=== PATIENT | female | born 1940 ===

== ENCOUNTER 2017-01-16 01:54 | Observation (INO) | payer MEDICARE ==
[2017-01-16] MEDS ORDERED: Lidocaine/Epi 1% 1:100000 20 ML IJ ONE (03:00)
[2017-01-16] MEDS ORDERED: Albuterol 0.083% Inhal Sol (2.5 mg/3 mL) UD INH ONE ×2 (03:01→05:10)
[2017-01-16] MEDS ORDERED: Lidocaine 2% w Epi 1:100,000 Inj IJ ONE ×2 (03:02→09:06)
[2017-01-16] MEDS ORDERED: Albuterol 0.083% Inhal Sol (2.5 mg/3 mL) UD ONE ×2 (03:04→05:27)
[2017-01-16] MEDS ORDERED: TDAP Vaccine 0.5 mL Syr IM ONE (03:14)
[2017-01-16 03:23] LABS: BASO % 0.4 % (0.0-2.0); EOS # 0.5 K/uL (0.0-0.7); EOS % 7.2 % (0.0-4.0); LYMPH % 26.1 % (20.0-40.0); MEAN CELL VOLUME 90.7 fl (81.0-99.0); MEAN CORPUSCULAR HEMOGLOBIN 29.5 pg (27.0-31.0); MEAN CORPUSCULAR HGB CONC 32.5 g/dL (33.0-37.0); MEAN PLATELET VOLUME 7.3 fl (7.2-11.7); MONO # 0.7 K/uL (0.0-0.8); MONO % 8.7 % (0.0-10.0); NEUT # 4.4 K/uL (1.8-7.0); NEUT % 57.6 % (50.0-75.0); NRBC % 0.1 % (0.0-0.0); RBC 4.39 Mil/uL (3.80-5.20); RED CELL DISTRIBUTION WIDTH 16.3 % (11.5-14.5); WHITE BLOOD COUNT 7.6 K/uL (4.8-10.8)
[2017-01-16 03:33] LABS: BLOOD UREA NITROGEN 11 mg/dl (7-17); GFR AFRICAN-AMERICAN > 60; GFR NON-AFRICAN AMERICAN > 60
[2017-01-16 03:34] LABS: ALBUMIN 3.6 g/dL (3.5-5.0); CALCIUM 9.2 mg/dL (8.4-10.2)
[2017-01-16 03:35] LABS: ALB/GLOB RATIO 1.4 (1.0-2.1); ALT/SGPT 24 U/L (9-52); AST/SGOT 23 U/L (14-36)
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
[2017-01-16 03:52] LABS: INR 0.9 (0.9-1.2); PARTIAL THROMBOPLASTIN TIME 27.8 Seconds (25.6-37.1); PROTHROMBIN TIME 10.3 Seconds (9.8-13.1)
[2017-01-16] MEDS ORDERED: ceFAZolin 1 GM in Sodium Chloride 0.9% 100 ML IV STA (04:29)
[2017-01-16] MEDS ORDERED: Lidocaine 1% Inj (20ml) IJ ONE (05:57)
[2017-01-16] MEDS ORDERED: Povidone Iodine Topical 10% Sol ONE (05:58)
--- NOTE | 2017-01-16 06:36 | ED PDOC ---
- Laboratory Results Result Diagrams: 01/16/17 03:20 01/16/17 03:20 Medical Decision Making Medical Decision Makin Patient signed over to me from [facility] pending podiatry consult. Patient is in ED OBS. Further documentation will take place in that section of the note. Scribe Attestation: Documented by Anat Thomas acting as a scribe for Rodrigue Estrella MD. MD Scribe Attestation: All medical record entries made by the Scribe were at my direction and personally dictated by me. I have reviewed the chart and agree that the record accurately reflects my personal performance of the history, physical exam, medical decision making, and the department course for this patient. I have also personally directed, reviewed, and agree with the discharge instructions and disposition. Disposition - Clinical Impression Clinical Impression: Laceration of right lower leg, Dyspnea - POA Present On Arrival: None - Disposition Disposition: Transfer of Care Disposition Time: 04:30 Condition: STABLE Patient Signed Over To: Jesus Rodas III (at 0700) Handoff Comments: Pending podiatry consult ED OBSERVATION Date of observation admission: 01/16/17 Time of observation admission: 04:30 - Observation admission statement Patient is being placed in observation because:: Pending podiatry consult - Goals of Observation Goals of observation are:: Final disposition - Progress Note Progress Note: 01/16/17 07:00 Patient will be signed out to Dr. Rodsa pending podiatry consult.
--- NOTE | 2017-01-16 07:15 | ED PDOC ---
- Laboratory Results Result Diagrams: 01/16/17 03:20 01/16/17 03:20 Medical Decision Making Medical Decision Making: Time: 7:00 Patient was signed out to me by Dr. Rodrigue Estrella pending wound repair by podiatry, reevaluation and final disposition. Podiatry team repaired wound and pt seen by Dr Fontanez per podiatry team. Will see wound care [place] morning. Rx antibiotics. Also given additional duoneb for asthma (takes at home) and she requested her dose of prednisone 1mg (on current taper). ~ Scribe Attestation: Documented byJagdish Ni, acting as a scribe for Jesus Rodas DO. Provider Scribe Attestation: All medical record entries made by the Scribe were at my direction and personally dictated by me. I have reviewed the chart and agree that the record accurately reflects my personal performance of the history, physical exam, medical decision making, and the department course for this patient. I have also personally directed, reviewed, and agree with the discharge instructions and disposition. Disposition - Clinical Impression Clinical Impression: Laceration of right lower leg, Dyspnea - POA Present On Arrival: None - Disposition Disposition: Routine/Home Disposition Time: 09:00 Condition: STABLE
[2017-01-16] MEDS ORDERED: Albuterol-Ipratrop 3 mg / 0.5 (3 ml) UD INH STA (10:09)
[2017-01-16] MEDS ORDERED: Albuterol-Ipratrop 3 mg / 0.5 (3 ml) UD ONE (10:14)
[2017-01-16] MEDS ORDERED: predniSONE 5 mg/5 mL Oral Soln UD PO ONE (10:45)
[2017-01-16 11:27] VITALS: BP 130/69; PULSE 76; RESP 18; TEMP 98.1; O2SAT 96
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
--- NOTE | 2017-01-16 14:15 | RAD ---
PROCEDURE: Radiographs of the right tibia and fibula. HISTORY: laceration medial distal aspect COMPARISON: None available. TECHNIQUE: Frontal and lateral views obtained. FINDINGS: BONES: No fracture or destructive lesion. JOINT SPACES: Unremarkable. OTHER FINDINGS: Deep soft tissue injury adjacent to the distal right tibia. No osseous involvement. No visulaized radiopaque/visualized foreign body. IMPRESSION: Soft tissue swelling without acute articular or osseous abnormality.
== END 2017-01-16 10:11 | disposition home or self-care (01) ==
LOC: H.ER 01:54 → H.EROBSV 04:30
PROVIDERS: ADMIT Emergency Medicine; ATTEND Emergency Medicine
DX: S91.011A Laceration without foreign body, right ankle, initial encounter (principal); X58.XXXA Exposure to other specified factors, initial encounter; Y92.9 Unspecified place or not applicable; Z88.2 Allergy status to sulfonamides; Z23 Encounter for immunization; F41.9 Anxiety disorder, unspecified; I25.10 Atherosclerotic heart disease of native coronary artery without angina pectoris; J44.9 Chronic obstructive pulmonary disease, unspecified; I10 Essential (primary) hypertension; E78.00 Pure hypercholesterolemia, unspecified; Z95.5 Presence of coronary angioplasty implant and graft; Z87.891 Personal history of nicotine dependence
CPT/HCPCS: 12004; 73590; 80053; 85025; 85610; 85730; 90471; 90715; 94640; 96374; 99282; G0378; J0690

== ENCOUNTER 2017-01-19 13:48 | Emergency (ER) | payer MEDICARE ==
[2017-01-19 14:01] VITALS: TEMP 98.7
--- NOTE | 2017-01-19 14:23 | ED PDOC ---
HPI: SOB/CHF/COPD Time Seen by Provider: 01/19/17 14:01 Chief Complaint (Nursing): Shortness Of Breath Chief Complaint (Provider): Dizziness History Per: Patient, Family History/Exam Limitations: no limitations Onset/Duration Of Symptoms: Days (Today Morning) Current Symptoms Are (Timing): Still Present Additional Complaint(s): Pt. has dizziness today after waking up. Like she is going to pass out. Also with palpitations, nausea. No chest pain. Has chronic dyspnea, but worse today. No numbness, tingles, headaches, chest pain, abd pain. Usually oxygen level is 93-96 and uses oxygen at home at night. No fever. Cough present with no phlegm. On her to wound care today, but came to the ED instead with the symptoms. Has a laceration repair recently and wound care appt for check up. Has mild pain to wound. Occasional bleeding from there. Past Medical History Reviewed: Nursing Documentation, Vital Signs Vital Signs: Last Vital Signs Temp 98.7 F 01/19/17 13:59 Pulse 82 01/19/17 13:59 Resp 20 01/19/17 13:59 BP 129/69 01/19/17 13:59 Pulse Ox 93 L 01/19/17 17:26 - Medical History PMH: Anxiety, CAD, COPD, Fractures (ribs), Gall Bladder Disease, HTN, Hypercholesterolemia Denies: HIV, Chronic Kidney Disease - Surgical History Surgical History: Cholecystectomy, Coronary Stent (x1), Tonsillectomy - Family History Family History: States: Unknown Family Hx - Living Arrangements Living Arrangements: With Family - Social History Current smoker - smoking cessation education provided: No Alcohol: None Drugs: Denies - Home Medications Home Medications: Ambulatory Orders Medication Instructions Recorded Furosemide 20 mg PO DAILY 06/16/14 Dexlansoprazole [Dexilant] 60 mg PO DAILY 07/15/14 [id number]-6-[id number] Ethyl Esters 1 GM 2 gm PO BID 07/15/14 [Lovaza] Albuterol 0.083% [Albuterol 0.083% 3 ml IH Q4H PRN 06/29/16 Inhal Yareli (2.5 mg/3 ml) UD] predniSONE [predniSONE Tab] 1 mg PO DAILY 06/29/16 Aspirin [Aspirin Chewable] 81 mg PO DAILY 01/16/17 Cephalexin [Keflex] 500 mg PO Q6 #27 capsule 01/16/17 traMADol [Ultram] 50 mg PO TID PRN #12 tab 01/16/17 Albuterol Sulfate [Proair Hfa] 0.09 mg IH Q6H PRN #2 inh 01/19/17 Clindamycin [Cleocin] 300 mg PO QID 7 Days 01/19/17 predniSONE [predniSONE Tab] 20 mg PO BID 5 Days 01/19/17 - Allergies Allergies/Adverse Reactions: Allergies Allergy/AdvReac Type Severity Reaction Status Date / Time Sulfa (Sulfonamide Allergy SWELLING Verified 01/19/17 13:58 Antibiotics) Review of Systems ROS Statement: Except As Marked, All Systems Reviewed And Found Negative Constitutional: Positive for: Weakness Cardiovascular: Positive for: Palpitations, Light Headedness Respiratory: Positive for: Cough, Shortness of Breath, Wheezing Gastrointestinal: Positive for: Nausea Musculoskeletal: Positive for: Leg Pain Neurological: Positive for: Weakness, Dizziness Physical Exam - Reviewed Nursing Documentation Reviewed: Yes Vital Signs Reviewed: Yes - Physical Exam Appears: Positive for: Non-toxic, No Acute Distress Head Exam: Positive for: ATRAUMATIC, NORMAL INSPECTION, NORMOCEPHALIC Skin: Positive for: Normal Color, Warm, DRY Eye Exam: Positive for: EOMI, Normal appearance, PERRL ENT: Positive for: Normal ENT Inspection. Negative for: Nasal Congestion, Tonsillar Exudate Neck: Positive for: Normal, Painless ROM, Supple Cardiovascular/Chest: Positive for: Regular Rate, Rhythm Respiratory: Positive for: Decreased Breath Sounds, Wheezing (b/l). Negative for: Accessory Muscle Use Gastrointestinal/Abdominal: Positive for: Normal Exam, Bowel Sounds, Soft. Negative for: Tenderness Back: Positive for: Normal Inspection. Negative for: L CVA Tenderness, R CVA Tenderness Extremity: Positive for: Normal ROM, Tenderness (R medial calf with laceration repaired; no necrosis identified.) Neurologic/Psych: Positive for: Alert, manager ed II-XII, Oriented. Negative for: Motor/Sensory Deficits, Facial Droop - Laboratory Results Result Diagrams: 01/19/17 15:17 01/19/17 15:17 Interpretation Of Abn Labs: no acute - ECG ECG: Positive for: Interpreted By Me, Viewed By Me ECG Rhythm: Positive for: Normal QRS, Normal ST Segment, Sinus Rhythm O2 Sat by Pulse Oximetry: 93 Pulse Ox Interpretation: Abnormal - Radiology X-Ray: Read By Radiologist X-Ray Interpretation: No Acute Disease - CT Scan/US ct Other Rad Studies (CT/US): Read By Radiologist Other Rad Interpretation: no acute - Progress ED Course And Treament: 1730: Stable. Feels much better. Tolerated PO. Not dizzy. Oxygen improved post tx. No dyspnea. Pt. seen by podiatry. They want pt. to fu in 3 days. Ambulated with no issues. Pt. states she didn't like the keflex so has stopped it. Will give clinda. Disposition - Clinical Impression Clinical Impression: COPD exacerbation, Dizziness - Patient ED Disposition Is Patient to be Admitted: No Counseled Patient/Family Regarding: Studies Performed, Diagnosis, Need For Followup - Disposition Referrals: [facility] [Outside] - 01/22/17 Disposition: Routine/Home Disposition Time: 17:33 Condition: STABLE Additional Instructions: Return if not better in 3 days. Prescriptions: Albuterol Sulfate [Proair Hfa] 0.09 mg IH Q6H PRN #2 inh PRN Reason: Wheezing Clindamycin [Cleocin] 300 mg PO QID 7 Days predniSONE [predniSONE Tab] 20 mg PO BID 5 Days Instructions: Dizziness (ED), COPD (Chronic Obstructive Pulmonary Disease) (ED)
[2017-01-19] MEDS ORDERED: Albuterol-Ipratrop 3 mg / 0.5 (3 ml) UD INH STA ×2 (14:29→18:36)
[2017-01-19] MEDS ORDERED: Albuterol-Ipratrop 3 mg / 0.5 (3 ml) UD IH STA (14:29)
[2017-01-19] MEDS ORDERED: Sodium Chloride 0.9% 500 ML IV STA (14:29)
[2017-01-19] MEDS ORDERED: Albuterol-Ipratrop 3 mg / 0.5 (3 ml) UD ONE ×3 (14:35→18:18)
--- NOTE | 2017-01-19 14:50 | RAD ---
HISTORY: dyspnea COMPARISON: Chest x-ray performed 06/30/16 TECHNIQUE: Chest, one view. FINDINGS: LUNGS: No focal consolidation. Please note that chest x-ray has limited sensitivity for the detection of pulmonary masses. PLEURA: No significant pleural effusion identified. No definite pneumothorax . CARDIOVASCULAR: Heart size appears within normal limits. Atherosclerotic calcification of the aortic knob. OSSEOUS STRUCTURES: Degenerative changes. VISUALIZED UPPER ABDOMEN: Right upper quadrant surgical clips. OTHER FINDINGS: None. IMPRESSION: No focal consolidation, significant pleural effusion, or definite pneumothorax identified.
[2017-01-19 15:21] LABS: BASO % 0.3 % (0.0-2.0); EOS # 0.3 K/uL (0.0-0.7); EOS % 4.3 % (0.0-4.0); LYMPH # 1.1 K/uL (1.0-4.3); MEAN CORPUSCULAR HEMOGLOBIN 29.7 pg (27.0-31.0); MEAN CORPUSCULAR HGB CONC 32.3 g/dL (33.0-37.0); MEAN PLATELET VOLUME 7.6 fl (7.2-11.7); MONO # 0.7 K/uL (0.0-0.8); MONO % 8.8 % (0.0-10.0); NEUT # 5.6 K/uL (1.8-7.0); NEUT % 72.6 % (50.0-75.0); RBC 3.71 Mil/uL (3.80-5.20); RED CELL DISTRIBUTION WIDTH 15.8 % (11.5-14.5); WHITE BLOOD COUNT 7.7 K/uL (4.8-10.8)
[2017-01-19 15:33] LABS: ALB/GLOB RATIO 1.7 (1.0-2.1); ALBUMIN 3.8 g/dL (3.5-5.0); ALT/SGPT 39 U/L (9-52); AST/SGOT 31 U/L (14-36); BLOOD UREA NITROGEN 11 mg/dl (7-17); CALCIUM 8.5 mg/dL (8.4-10.2); GFR AFRICAN-AMERICAN > 60; GFR NON-AFRICAN AMERICAN > 60
--- NOTE | 2017-01-19 15:33 | CARD ---
APPROVED REPORT EKG Measurement Heart [id number] <Conclusion> Normal sinus rhythm Normal ECG
[2017-01-19 15:35] LABS: VENOUS BLOOD GAS PCO2 60 mmHg (40-60); VENOUS BLOOD GAS PO2 24 mm/Hg (30-55); VENOUS BLOOD PH 7.33 (7.32-7.43)
[2017-01-19 15:41] LABS: PARTIAL THROMBOPLASTIN TIME 29.9 Seconds (25.6-37.1); PROTHROMBIN TIME 11.4 Seconds (9.8-13.1)
[2017-01-19 15:44] LABS: B-TYPE NATRIURETIC PEPTIDE 133 pg/ml (0-900)
--- NOTE | 2017-01-19 16:53 | CT ---
PROCEDURE: CT HEAD WITHOUT CONTRAST. HISTORY: headache COMPARISON: None available. TECHNIQUE: Axial computed tomography images were obtained through the head/brain without intravenous contrast. Radiation dose: Total exam DLP = 990.74 mGy-cm. This CT exam was performed using one or more of the following dose reduction techniques: Automated exposure control, adjustment of the mA and/or kV according to patient size, and/or use of iterative reconstruction technique. FINDINGS: HEMORRHAGE: No intracranial hemorrhage. BRAIN: No mass effect or edema. Intracranial atherosclerotic calcifications. Scattered periventricular and subcortical white matter hypodensities, which are nonspecific, but often seen with chronic microvascular ischemic disease. Please note that MRI with diffusion imaging is more sensitive in the detection of acute ischemic event. VENTRICLES: No hydrocephalus. CALVARIUM: Unremarkable. PARANASAL SINUSES: Unremarkable as visualized. No significant inflammatory changes. MASTOID AIR CELLS: Unremarkable as visualized. No inflammatory changes. OTHER FINDINGS: Partial opacification of the right external auditory canal, likely cerumen. IMPRESSION: Nonspecific white matter changes.
[2017-01-19 18:39] VITALS: BP 130/77; PULSE 89; RESP 16; O2SAT 96
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
== END 2017-01-19 18:39 | disposition home or self-care (01) ==
LOC: H.ER 13:48
DX: I25.10 Atherosclerotic heart disease of native coronary artery without angina pectoris (principal); R42 Dizziness and giddiness; R00.2 Palpitations; E78.00 Pure hypercholesterolemia, unspecified; F41.9 Anxiety disorder, unspecified; I10 Essential (primary) hypertension; Z79.82 Long term (current) use of aspirin; Z95.5 Presence of coronary angioplasty implant and graft; Z99.81 Dependence on supplemental oxygen
CPT/HCPCS: 70450; 71010; 80053; 82803; 83880; 84484; 85025; 85610; 85730; 87040; 93005; 94640; 96374; 99282; J2930; J7040

== ENCOUNTER 2017-03-13 11:54 | Emergency (ER) | payer MEDICARE ==
[2017-03-13 12:15] VITALS: BP 152/79; PULSE 69; TEMP 97; O2SAT 95
--- NOTE | 2017-03-13 12:28 | ED PDOC ---
HPI: SOB/CHF/COPD Time Seen by Provider: 03/13/17 12:28 Chief Complaint (Nursing): Shortness Of Breath Chief Complaint (Provider): shortness of breath History Per: Patient Additional Complaint(s): 77-year-old female with history of asthma and COPD presents to emergency Department with chest congestion and shortness of breath 1 week. The patient has been using albuterol via nebulizer at home but this has not helped. Patient states she has a cough that is productive of green and yellow sputum. She denies fever or chills. Patient also states she has an appointment today at wound care center secondary to chronic open wound to right leg. Patient has noticed foul-smelling discharge from wound and is concerned about possible infection. Patient also states that she uses oxygen routinely at home at bedtime (2 liters via nasal cannula). Past Medical History Reviewed: Historical Data, Nursing Documentation, Vital Signs Vital Signs: Last Vital Signs Temp 97.0 F L 03/13/17 12:12 Pulse 69 03/13/17 12:12 Resp 22 03/13/17 13:42 BP 152/79 H 03/13/17 12:12 Pulse Ox 95 03/13/17 16:57 - Medical History PMH: Anxiety, Asthma, CAD, COPD, Gall Bladder Disease, HTN, Hypercholesterolemia , Seizures - Surgical History Surgical History: Cholecystectomy, Coronary Stent (x1), Tonsillectomy - Family History Family History: States: No Known Family Hx - Living Arrangements Living Arrangements: With Family - Social History Current smoker - smoking cessation education provided: No Ex-Smoker (has not smoked in the last 12 months): Yes (quit 10 years ago) Alcohol: None Drugs: Denies - Home Medications Home Medications: Ambulatory Orders Medication Instructions Recorded Furosemide 20 mg PO DAILY 06/16/14 Dexlansoprazole [Dexilant] 60 mg PO DAILY 07/15/14 [id number] Ethyl Esters 1 GM 2 gm PO BID 07/15/14 [Lovaza] Albuterol 0.083% [Albuterol 0.083% 3 ml IH Q4H PRN 06/29/16 Inhal Yareli (2.5 mg/3 ml) UD] predniSONE [predniSONE Tab] 1 mg PO DAILY 06/29/16 Aspirin [Aspirin Chewable] 81 mg PO DAILY 01/16/17 Cephalexin [Keflex] 500 mg PO Q6 #27 capsule 01/16/17 traMADol [Ultram] 50 mg PO TID PRN #12 tab 01/16/17 Albuterol Sulfate [Proair Hfa] 0.09 mg IH Q6H PRN #2 inh 01/19/17 Clindamycin [Cleocin] 300 mg PO QID 7 Days 01/19/17 predniSONE [predniSONE Tab] 20 mg PO BID 5 Days 01/19/17 Albuterol HFA [Ventolin HFA 90 1 puff IH ASDIR #1 unit 03/13/17 mcg/actuation (8 g)] Benzonatate 200 mg PO TID PRN #20 capsule 03/13/17 Levofloxacin [Levaquin] 750 mg PO DAILY #5 tablet 03/13/17 Prednisone 50 mg PO DAILY #5 tablet 03/13/17 - Allergies Allergies/Adverse Reactions: Allergies Allergy/AdvReac Type Severity Reaction Status Date / Time Sulfa (Sulfonamide Allergy SWELLING Verified 01/19/17 13:58 Antibiotics) Curb-65 Severity Score - CURB-65 Severity Score Confusion: No Bun >19mg/dl (>7mmol/L): No Respiratory Rate greater than/equal to 30: No Systolic BP <90 or Diastolic BP less than/equal 60mmHg: No Age >64: No Curb-65 Score: 0 Percentage 30-day mortality: 0.6% Wells Criteria for PE - Wells Criteria for Pulmonary Embolism Clinical Signs and Symptoms of DVT: No P.E is #1 Diagnosis, or Equally Likely: No Heart Rate >100: No Immobilization at least 3 days;Surgery previous 4 weeks: No Previous, objectively diagnosed PE or DVT: No Hemoptysis: No Malignancy w/treatment within 6 months, or palliative: No Total Score: 0 Review of Systems ROS Statement: Except As Marked, All Systems Reviewed And Found Negative Constitutional: Negative for: Fever, Chills Cardiovascular: Positive for: Chest Pain (due to cough) Respiratory: Positive for: Cough, Shortness of Breath, SOB with Exertion, Wheezing. Negative for: Hemoptysis Gastrointestinal: Negative for: Nausea, Vomiting, Abdominal Pain Neurological: Negative for: Headache, Dizziness Physical Exam - Reviewed Nursing Documentation Reviewed: Yes Vital Signs Reviewed: Yes - Physical Exam Appears: Positive for: Well, Non-toxic, No Acute Distress Skin: Negative for: Rash Eye Exam: Positive for: Normal appearance, EOMI, PERRL Cardiovascular/Chest: Positive for: Regular Rate, Rhythm Respiratory: Positive for: Rhonchi, Wheezing (Diffuse inspiratory and expiratory wheezing) Gastrointestinal/Abdominal: Positive for: Soft. Negative for: Tenderness, Organomegaly, Distended, Guarding, Rebound Back: Negative for: L CVA Tenderness, R CVA Tenderness Extremity: Negative for: Pedal Edema Neurologic/Psych: Positive for: Alert, Oriented - Laboratory Results Result Diagrams: 03/13/17 13:35 03/13/17 13:35 - ECG O2 Sat by Pulse Oximetry: 95 Pulse Ox Interpretation: Normal - Other Rad CXR X-Ray: Interpreted by Me, Viewed By Me X-Ray Interpretation: no acute finding Nebulizer Treatments/Peak Flow - Duonebs Number of Bronchodilator Doses given?: 3 (duoneb) - Steroid Treatment Steroid: IV (125 mg IV solumedrol) - Clinical Response Clinical Response: Improved Medical Decision Making Medical Decision Making: Impression: COPD exaceration, wound to right leg Plan: CBC CMP Trop BNP IV solumedrol Duoneb x 3 Podiatry consult Podiatry resident at bedside replaced dressing to right leg wound. Resident states there is no infection noted, no indication for antibiotics at this time. Patient was instructed to follow up next week with wound care clinic as scheduled. Patient feels better after meds given. On reexamination, wheezing has subsided substantially. Patient will be discharged with prescription for Ventolin inhaler , Tessalon Perles, Levaquin and prednisone. Patient was advised to take meds as directed and follow up with primary doctor in 1-2 days. She is aware she can return to ED if acutely worse at any time. Disposition - Clinical Impression Clinical Impression: COPD exacerbation, Wound, open, leg - Patient ED Disposition Is Patient to be Admitted: No Counseled Patient/Family Regarding: Studies Performed, Diagnosis, Need For Followup, Rx Given - Disposition Referrals: Jesus Chance DPM [Staff Provider] - Disposition: Routine/Home Disposition Time: 16:16 Condition: STABLE Additional Instructions: Take prescription meds as directed. Follow-up with primary doctor in 1-2 days. Follow up next week with wound care clinic as scheduled. Prescriptions: Albuterol HFA [Ventolin HFA 90 mcg/actuation (8 g)] 1 puff IH ASDIR #1 unit Benzonatate 200 mg PO TID PRN #20 capsule PRN Reason: Cough Levofloxacin [Levaquin] 750 mg PO DAILY #5 tablet Prednisone 50 mg PO DAILY #5 tablet Instructions: COPD (Chronic Obstructive Pulmonary Disease) (ED), Chronic Wound Care (ED) Forms: [employer] (Citizen Of [place]) Results - Lab Results Lab Results: 03/13/17 03/13/17 13:35 13:35 WBC 5.6 RBC 3.83 Hgb 10.9 L Hct 33.8 L MCV 88.2 D MCH 28.5 MCHC 32.3 L RDW 14.7 H Plt Count 243 MPV 7.5 Neut % (Auto) 51.9 Lymph % (Auto) 33.1 [place] % (Auto) 9.2 Eos % (Auto) 5.4 H Baso % (Auto) 0.4 Neut # 2.9 Lymph # 1.9 [place] # 0.5 Eos # 0.3 Baso # 0.0 Sodium 139 Potassium 4.3 Chloride 103 Carbon Dioxide 27 Anion Gap 13 BUN 12 Creatinine 0.5 L Est GFR ( Amer) > 60 Est GFR (Non-Af Amer) > 60 Random Glucose 117 H Calcium 9.1 Total Bilirubin 0.4 AST 35 ALT 27 Alkaline Phosphatase 96 Troponin I < 0.0120 NT-Pro-B Natriuret Pep 171 Total Protein 6.1 L Albumin 3.7 Globulin 2.4 Albumin/Globulin Ratio 1.5
[2017-03-13] MEDS ORDERED: Albuterol-Ipratrop 3 mg / 0.5 (3 ml) UD INH STA (13:07)
[2017-03-13] MEDS ORDERED: Albuterol-Ipratrop 3 mg / 0.5 (3 ml) UD ONE (13:17)
[2017-03-13 13:44] VITALS: RESP 22
[2017-03-13 13:54] LABS: BASO % 0.4 % (0.0-2.0); EOS # 0.3 K/uL (0.0-0.7); EOS % 5.4 % (0.0-4.0); HEMATOCRIT 33.8 % (34.0-47.0); LYMPH # 1.9 K/uL (1.0-4.3); LYMPH % 33.1 % (20.0-40.0); MEAN CELL VOLUME 88.2 fl (81.0-99.0); MEAN CORPUSCULAR HEMOGLOBIN 28.5 pg (27.0-31.0); MEAN CORPUSCULAR HGB CONC 32.3 g/dL (33.0-37.0); MEAN PLATELET VOLUME 7.5 fl (7.2-11.7); MONO # 0.5 K/uL (0.0-0.8); MONO % 9.2 % (0.0-10.0); NEUT # 2.9 K/uL (1.8-7.0); NEUT % 51.9 % (50.0-75.0); RED CELL DISTRIBUTION WIDTH 14.7 % (11.5-14.5); WHITE BLOOD COUNT 5.6 K/uL (4.8-10.8)
[2017-03-13 14:24] LABS: ALB/GLOB RATIO 1.5 (1.0-2.1); ALKALINE PHOSPHATASE 96 U/L (38-126); ALT/SGPT 27 U/L (9-52); AST/SGOT 35 U/L (14-36); BILIRUBIN,TOTAL 0.4 mg/dl (0.2-1.3); BLOOD UREA NITROGEN 12 mg/dl (7-17); CALCIUM 9.1 mg/dL (8.4-10.2); CARBON DIOXIDE 27 mmol/L (22-30); CHLORIDE 103 mmol/L (98-107); GFR AFRICAN-AMERICAN > 60; GLUCOSE,RANDOM 117 mg/dL (65-105); POTASSIUM 4.3 MMOL/L (3.6-5.0); SODIUM 139 mmol/l (132-148); TOTAL PROTEIN 6.1 G/DL (6.3-8.2)
--- NOTE | 2017-03-13 16:07 | RAD ---
HISTORY: sob COMPARISON: Portable chest 01/19/2017. FINDINGS: LUNGS: No active pulmonary disease. PLEURA: No significant pleural effusion identified, no pneumothorax apparent. CARDIOVASCULAR: Normal. OSSEOUS STRUCTURES: No significant abnormalities. VISUALIZED UPPER ABDOMEN: Left hemidiaphragm elevation is appreciated once again, a etiology remains indeterminate. OTHER FINDINGS: None. IMPRESSION: No interval acute infiltrate pleural effusion or pneumothorax. Cardiac size remains normal. No pulmonary vascular derangement appreciated grossly.
--- NOTE | 2017-03-14 08:41 | CARD ---
APPROVED REPORT EKG Measurement Heart [id number] <Conclusion> Normal sinus rhythm Normal ECG
== END 2017-03-13 17:15 | disposition home or self-care (01) ==
LOC: H.ER 11:54
DX: J44.1 Chronic obstructive pulmonary disease with (acute) exacerbation (principal); L97.909 Non-pressure chronic ulcer of unspecified part of unspecified lower leg with unspecified severity; Z79.82 Long term (current) use of aspirin; Z95.5 Presence of coronary angioplasty implant and graft; I10 Essential (primary) hypertension; E78.00 Pure hypercholesterolemia, unspecified; F41.9 Anxiety disorder, unspecified
CPT/HCPCS: 71010; 80053; 83880; 84484; 85025; 93005; 94150; 94640; 96374; 99283; J2930